=== PATIENT | female | born 1955 | race African-American/Black ===

== ENCOUNTER 2020-02-06 16:26 | Inpatient (IN) | payer OTHER ==
[~2020-02-06] VITALS: Ht 167.6 cm; Wt 100.4 kg
--- NOTE | ~2020-02-06 | EKG ---
[facility] [place] [address] ELECTROCARDIOGRAM REPORT Name: SHAUN BEAN Room #: 355-P ADM IN M.R.#: [id number] Admission: 02/06/20 Attend Phys: Nader Valentin Discharge: Date of : 55 Report #: [id number] THIS REPORT FOR: cc: Teagan Rincon MD, Melanie MD Epiphany, Epiphany MD ~ THIS REPORT FOR: //name// [facility] Test Date: 2020-02-07 Test Time: 00:51:15 Pat Name: SHAUN BEAN Department: Room: 355 Gender: F Floor Refinisher: gomez raphael rn : 1955 Requested By: Scarlett Castillo Order Number: [id number] MD: Measurements Intervals [place] Rate: 93 P: 69 PA: 190 QRS: 31 QRSD: 92 T: 95 QT: 421 QTc: 524 Interpretive Statements Sinus rhythm Anteroseptal infarct, age indeterminate Prolonged QT interval Compared to ECG 11/22/2011 13:29:04 Myocardial infarct finding now present Prolonged QT interval now present T-wave abnormality no longer present [email or web address] By: 0051 005 Epiphany Epiphany, /EPI
[~2020-02-06 16:26] MED LIST: ATENOLOL 100MG100 M2; CALCIUM 600 +1 EAC1; GLUCOPHAGE500 MG; LISINOPRIL20 MG; LORTABELXR PO; MULTIVITAMINS; PREDNISONE50 MG PO; PROAIR HFA8.5 GM; SIMVASTATIN20 MG; ZPAK PO
[2020-02-06 16:27] VITALS: BP 186/106
[2020-02-06 16:57] LABS: HEMATOCRIT 46.9 % (37.0-47.0); HEMOGLOBIN 15.1 gm/dL (12.0-15.0); MCH 29.7 pg (26.0-34.0); MCHC 32.3 g/dL (28.0-37.0); MCV 92.1 fL (80.0-100.0); RBC 5.09 mil/uL (4.20-5.00); RDW 14.9 % (10.5-14.5); WBC 9.2 thou/uL (4.0-11.0)
[2020-02-06] MEDS ORDERED: HYDROCHLOROTH12.5 M2 PO (16:58)
[2020-02-06] MEDS ORDERED: METFORMIN HCL500 MG PO (16:59)
[2020-02-06] MEDS ORDERED: ATORVASTATIN CA80 MG PO (17:00)
[2020-02-06] MEDS ORDERED: ANORO ELLIPTA1 EACH INH (17:01)
[2020-02-06 17:10] LABS: BE(vivo) -3.3 mmol/L (-2 to +3); HCO3 23.2 mmol/L (22.0-26.0); PCO2 46.9 mmHg (35.0-45.0); sO2 98.4 % (92.0-98.0)
[2020-02-06 17:12] LABS: pH 7.312 (7.360-7.450)
[2020-02-06 18:19] LABS: CALCIUM 9.1 mg/dL (8.5-10.1); POTASSIUM 3.6 mmol/L (3.5-5.1)
[2020-02-06 18:33] LABS: TROPONIN-I 0.64 ng/mL (<0.06)
[2020-02-06 18:41] VITALS: BP 150/84
[2020-02-06 19:31] VITALS: BP 178/102
[2020-02-06 20:39] VITALS: BP 178/102
--- NOTE | 2020-02-06 21:35 | NUR ---
PT RECEIVED FROM ED VIA AROUND 2100. PT WAS STABLE UPON ARRIVAL INTO THE ROOM SITTING IN THE ROOM. PT'S OXYGEN LEVEL WAS 96O2 ON RA. PT STATED SLIGHT PX AT THE L LATERAL NECK ONSET WITH MOVEMENT. PT ADMISSION COMPLETED BY THIS RN, COMPLETED TO THE BEST EXTENT. PT STATED UNDERSTANDING OF PT RIGHTS, USE OF CALL LIGHT/BED, SCDs ON, POC EXPLAINED. PT HAD NO COMPLAINTS AT THIS TIME. CONSULT FOR HOSPICE EDUCATOR INPUT WAS PUT IN, THIS RN CALLED AND ECHO/TROPONIN/ASPIRIN WAS ORDERED. PT AT THIS TIME IS RESTING IN BED, CALL LIGHT, WATER, PHONE ON THE BEDSIDE TABLE. BED AT LOWEST SETTING, 2/4 RAILS UP. WILL CONTINUE TO PROVIDE PROMPT CARE.
[2020-02-06 21:55] VITALS: BP 147/94
[2020-02-07] VITALS (7 sets, daily range): BP systolic 140–170; BP diastolic 62–99
--- NOTE | 2020-02-07 08:39 | EKG ---
[facility] [place] [address] ELECTROCARDIOGRAM REPORT Name: SHAUN BEAN Room #: 355-P ADM IN M.R.#: [id number] Admission: 02/06/20 Attend Phys: Nader Valentin Discharge: Date of : 55 Report #: [id number] THIS REPORT FOR: cc: Teagan Rincon MD, Melanie MD Couchonnal,Ivan Ocasio MD ~ THIS REPORT FOR: //name// [facility] ED Test Date: 2020-02-06 Test Time: 16:34:30 Pat Name: SHAUN BEAN Department: Room: [facility] Gender: F Resident In Diagnostic Radiology: jolene : 1955 Requested By: Duong Simmons Order Number: [id number] MD: Ivan Ferro Measurements Intervals [place] Rate: 101 P: 73 TN: 185 QRS: -58 QRSD: 123 T: 96 QT: 398 QTc: 516 Interpretive Statements Sinus tachycardia Left bundle branch block Compared to ECG 11/22/2011 13:29:04 Left bundle-branch block now present Sinus rhythm no longer present T-wave abnormality no longer present Electronically Signed On 02-07-2020 8:38:25 CDT by Ivan Ferro [email or web address] <ELECTRONICALLY SIGNED> By: Ivan Ferro MD 02/07/20 0838 1634 1634 Ivan Ferro MD /EPI
--- NOTE | 2020-02-07 08:40 | EKG ---
[facility] [place] [address] ELECTROCARDIOGRAM REPORT Name: SHAUN BEAN Room #: 355-P ADM IN M.R.#: [id number] Admission: 02/06/20 Attend Phys: Nader Valentin Discharge: Date of : 55 Report #: [id number] THIS REPORT FOR: cc: Teagan Rincon MD, Melanie MD Couchonnal,Ivan Ocasio MD ~ THIS REPORT FOR: //name// [facility] ED Test Date: 2020-02-06 Test Time: 17:27:12 Pat Name: SHAUN BEAN Department: Room: [facility] Gender: F Senior Partner: jolene : 1955 Requested By: Duong Simmons Order Number: [id number] MD: Ivan Ferro Measurements Intervals [place] Rate: 92 P: 67 SC: 201 QRS: -20 QRSD: 94 T: 89 QT: 389 QTc: 482 Interpretive Statements Sinus rhythm Borderline left axis deviation Compared to ECG 11/22/2011 13:29:04 T-wave abnormality no longer present Electronically Signed On 02-07-2020 8:38:37 CDT by Ivan Ferro [email or web address] <ELECTRONICALLY SIGNED> By: Ivan Ferro MD 02/07/20 0838 1727 26 Ivan Ferro MD /EPI
--- NOTE | 2020-02-07 08:41 | EKG ---
[facility] [place] [address] ELECTROCARDIOGRAM REPORT Name: SHAUN BEAN Room #: 355-P ADM IN M.R.#: [id number] Admission: 02/06/20 Attend Phys: Nader Valentin Discharge: Date of : 55 Report #: [id number] THIS REPORT FOR: cc: Teagan Rincon MD, Melanie MD Couchonnal,Ivan Ocasio MD ~ THIS REPORT FOR: //name// [facility] Test Date: 2020-02-07 Test Time: 00:51:15 Pat Name: SHAUN BEAN Department: Room: 355 Gender: F Length Control Tester: gomez raphael rn : 1955 Requested By: Scarlett Castillo Order Number: [id number] MD: Ivan Ferro Measurements Intervals [place] Rate: 93 P: 69 [place]: 190 QRS: 31 QRSD: 92 T: 95 QT: 421 QTc: 524 Interpretive Statements Sinus rhythm Anteroseptal infarct, age indeterminate Compared to ECG 11/22/2011 13:29:04 Myocardial infarct finding now present T-wave abnormality no longer present Electronically Signed On 02-07-2020 8:39:43 CDT by Ivan Ferro [email or web address] <ELECTRONICALLY SIGNED> By: Ivan Ferro MD 02/07/20 0839 Ivan Ferro MD /EPI
--- NOTE | 2020-02-07 13:35 | NUR ---
ASSESSMENT: CM REVIEWED CHART AND SPOKE WITH PATIENT. PT IS ALERT AND ORIENTED X4. PT IS CURRENTLY IN ISOLATION TO RULE OUT COVID 19. PT REPORTS SHE LIVES IN A HOUSE WITH HER , BROTHER, AND GRANDSON. PTS GRANDSON RECENTLY TRAVELED TO [place]. PT REPORTS SHE HAS ONE STEP TO ENTER THE HOME AND NO STEPS ONCE INSIDE. PT REPORTS SHE IS FULLY INDEPENDENT WITH ADLS AND AMBULATION AND DOES NOT HAVE DME. PT REPORTS SHE HAS NOT HAD HH IN THE PAST NOR BEEN TO A SNF. CM DISCUSSED ROLE. PT REPORTS SHE HAS NOT BEEN HOSPITALIZED SINCE SHE HAD HER CHILDREN AND IS VERY INDEPENDENT AND DOES NOT FEEL SHE WILL HAVE ANY NEEDS. CM WILL CONTINUE TO FOLLOW TO ASSIST NEEDED.
--- NOTE | 2020-02-07 19:12 | NUR ---
ASSUMED PATIENT CARE AT 0700. A/O X4. AFEBRILE. VSS. UP AD ODELL. SLOWLY TOWADS POC GOALS.
--- NOTE | 2020-02-07 21:11 | NUR ---
Pt progressing towards d/c goals. VSS Afebrile. Lungs continue to have wheezes. Resp tx per Rt. Unlabored currently on RA. Denied pain. No s/s distess. Scds on. Ambulates to BR independently. Sr on monitor.
--- NOTE | 2020-02-07 21:13 | NUR ---
Covid- negative. Report called to ns for rm 206. transferring pt in stable condition with all her belongings.
[2020-02-08 00:51] VITALS: BP 131/67
[2020-02-08 04:45] VITALS: BP 171/79
--- NOTE | 2020-02-08 05:13 | NUR ---
ASSESSMENTS CHARTED, MEDS GIVEN CHARTED. PATIENT WAS TRANSFERED FROM 3W AFTER HER COVID TEST CAME BACK NEGATIVE. ORIGINALLY CAME IN FOR CHEST PAIN AND RESPIRATORY ISSUES. PLAN IS TO GET AN ECHO DONE TODAY IF POSSIBLE. ALERT AND ORIENTED, SINUS RHYTHM ON TELEMETRY, ON ROOM AIR, UP AT ODELL IN ROOM. C/O HEADACHE AND NECK STRAIN. 02/06.
[2020-02-08 07:50] VITALS: BP 177/73
[2020-02-08 16:20] VITALS: BP 136/66
[2020-02-08 19:34] VITALS: BP 150/74
[2020-02-09 04:59] VITALS: BP 168/95
--- NOTE | 2020-02-09 06:27 | NUR ---
ASSESSMENT DOCUMENTED.PT BEEN RESTING IN NO ACUTE DISTRESS.A/OX4.VSS.DENIES CARDIAC PAIN.ON RA W/O RESP DISTRESS.UP AD ODELL TO BR,GAIT STEADY.POC IS TO WAIT FOR ECHO RESULTS ADN R/O ISCHEMIA.PT DENIES ANY CONCERNS AT THIS TIME.
[2020-02-09 07:31] VITALS: BP 160/75
--- NOTE | 2020-02-09 08:33 | 2DMMODE ---
[facility] [place] [address] 2 D/M-MODE ECHOCARDIOGRAM Name: SHAUN BEAN Patrick Room #: 206-P ADM IN M.R.#: [id number] Admission: 02/06/20 Attend Phys: Nader Valentin Discharge: Date of : 55 Report #: [id number] THIS REPORT FOR: cc: Teagan Rincon MD, Melanie MD Mancuso, Gerald M. MD [facility] ~ APPROVED REPORT Study performed: 02/08/2020 09:44:07 EXAM: Comprehensive 2D, Doppler, and color-flow Echocardiogram Patient Location: Bedside Room #: 206 Status: on-call BSA: 2.09 HR: 72 bpm BP: 144/73 mmHg Rhythm: NSR Other Information Study Quality: Adequate Risk Factors: Cardiac Risk Factors: HTN, DM, Smoking Indications Dyspnea Elevated Troponin 2D Dimensions IVSd: 13.99 (7-11mm) LVOT Diam: 21.00 (18-24mm) LVDd: 39.26 mm PWd: 11.56 (7-11mm) Ascending Ao: 31.45 (22-36mm) LVDs: 26.63 (25-40mm) Aortic Root: 27.53 mm LV Single Plane 4CH: 53.12 % LV Single Plane 2CH: 61.01 % Biplane EF: 56.1 % Volumes Left Atrial Volume (Systole) Single Plane 4CH: 46.40 mL Single Plane 2CH: 80.11 mL LA ESV Index: 32.00 mL/m2 [facility] [address] [place] [address] 2 D/M-MODE ECHOCARDIOGRAM Name: SHAUN BEAN Room #: 206-P [facility] IN ..#: [id number] Admission: 02/06/20 Attend Phys: Nader Lindo Dec Discharge: Date of : 55 Report #: [id number] Aortic Valve AoV Peak Raúl.: 1.34 m/s AO Peak Gr.: 7.15 mmHg LVOT Max P.00 mmHg LVOT Max V: 1.00 m/s ANTONIA Vmax: 2.56 cm2 Mitral Valve E/A Ratio: 1.0 MV Decel. Time: 204.43 ms MV E Max Raúl.: 0.89 m/s MV A Raúl.: 0.88 m/s MV PHT: 59.28 ms IVRT: 65.74 ms Pulmonary Valve PV Peak Raúl.: 0.80 m/s PV Peak Gr.: 2.58 mmHg Pulmonary Vein P Vein S: 0.69 m/s P Vein A: 0.32 m/s P Vein D: 0.47 m/s P Vein A Dur.: 86.5 msec P Vein S/D Ratio: 1.47 Tricuspid Valve RAP Estimate: 10.00 mmHg Left Ventricle The left ventricle is normal size. There is normal LV segmental wall motion. Mild to moderate concentric left ventricular hypertrophy. The left ventricular systolic function is normal. The left ventricular ejection fraction is within the normal range. LVEF is 55-60%. Moderate diastolic dysfunction is present (pseudonormal filling). Right Ventricle The right ventricle is normal size. The right ventricular systolic function is normal. Atria The left atrium size is normal. The right atrium size is normal. Aortic Valve The aortic valve is normal in structure. No aortic regurgitation is present. There is no aortic valvular stenosis. Mitral Valve [facility] [address] [place] [address] 2 D/M-MODE ECHOCARDIOGRAM Name: SHAUN BEAN Room #: 206-P [facility] IN M.R.#: [id number] Admission: 02/06/20 Attend Phys: Nader Hayes Discharge: Date of : 55 Report #: [id number] The mitral valve is normal in structure. Trace mitral regurgitation. No evidence of mitral valve stenosis. Tricuspid Valve The tricuspid valve is normal in structure. There is no tricuspid valve regurgitation noted. Pulmonic Valve The pulmonary valve is normal in structure. There is no pulmonic valvular regurgitation. Great Vessels The aortic root is normal in size. The ascending aorta is normal in size. IVC is dilated and collapses >50% with inspiration. Pericardium There is no pericardial effusion. <Conclusion> The left ventricle is normal size. LVEF is 55-60%. Moderate diastolic dysfunction is present (pseudonormal filling). The right ventricle is normal size. The left atrium size is normal. The aortic valve is normal in structure. Trace mitral regurgitation. There is no tricuspid valve regurgitation noted. The aortic root is normal in size. There is no pericardial effusion. <ELECTRONICALLY SIGNED> By: Fabiano Quan MD, FACC 02/09/20830 0 0 Fabiano Quan MD, FACC /INF
[2020-02-09 11:33] VITALS: BP 145/68
[2020-02-09 15:39] VITALS: BP 156/84
--- NOTE | 2020-02-09 16:57 | NUR ---
PT CARE ASSUMED APPROX 0700. ASSESSMENT CHARTED. DENIES PAIN AND SOA. VSS. UP WITH STEADY GAIT. TOLERATING POC. DENIES QUESTIONS OR CONCERNS REGARDING POC. NO DISTRESS NOTED.
[2020-02-09 19:54] VITALS: BP 181/91
[2020-02-10] VITALS (14 sets, daily range): BP systolic 147–1147; BP diastolic 80–107
--- NOTE | 2020-02-10 05:49 | NUR ---
ASSUMED PT CARE AT 1900, PT IS AWAKE, A&OX4, SR ON THE MONITOR, ASESSMENTS CHARTED, DENIES CHEST PAIN AND SOB, REMAINED NPO AFTER MIDNIGHT, VITAL STABLE, RESTED WITH NO CONCERNS THROUGH THE NIGHT, WILL CONTINUE TO MONITOR
--- NOTE | 2020-02-10 17:50 | NUR ---
ASSUMED PATIENT CARE AT SHIFT CHANGE, ASSESSMENT CHARTED. BP ELEVATED, MEDICATED WITH MORNING MEDS POST CATH, AND DR HUA NOTIFIED, SEE POST CARDIAC CATH ASSESSMENT. DENIES CP OR DISCOMFRT AND WILL CONTINUE WITH POC.
[2020-02-11] VITALS: BP 168/92
[2020-02-11 04:00] VITALS: BP 1187/85
[2020-02-11 04:59] LABS: ABSOLUTE NEUTROPHILS 9.8 thou/uL (1.4-8.2); BASOPHILS 0.3 % (0.0-2.0); HEMATOCRIT 46.8 % (37.0-47.0); LYMPHOCYTES 22.9 % (24.0-44.0); MCH 29.2 pg (26.0-34.0); MCHC 32.2 g/dL (28.0-37.0); MCV 90.9 fL (80.0-100.0); MONOCYTES 4.7 % (1.0-8.0); PLATELET COUNT 245 thou/uL (150-400); POLYS 72.1 % (36.0-66.0); RBC 5.15 mil/uL (4.20-5.00); RDW 14.8 % (10.5-14.5); WBC 13.6 thou/uL (4.0-11.0)
[2020-02-11 05:02] VITALS: BP 184/87
[2020-02-11 05:13] LABS: ALBUMIN 3.4 g/dL (3.4-5.0); CALCIUM 8.8 mg/dL (8.5-10.1); CREATININE 0.9 mg/dL (0.6-1.0); POTASSIUM 3.4 mmol/L (3.5-5.1); TOTAL BILIRUBIN 0.4 mg/dL (<0.1-1.0); TOTAL PROTEIN 7.2 g/dL (6.4-8.2)
--- NOTE | 2020-02-11 06:24 | NUR ---
ASSUMED PT CARE AT 1900, PT IS ALERT, AWAKE AND ORIENTEDX4, DENIES CHEST PAIN OR SOB, BP ELEVATED,PRACTICE PERFORMANCE MANAGER NOTIFIED, GAVE CARVEDILOL EARLY, GROIN SITE CDI, ASSESSMENTS CHARTED, RESTED WELL THROUGH THE NIGHT, WILL CONTINUE TO MONITOR
[2020-02-11 08:27] VITALS: BP 158/89
--- NOTE | 2020-02-11 09:51 | CATHLAB ---
[facility] [address] INVASIVE PROCEDURE REPORT Name: SHAUN BEAN Room #: 206-P ADM IN M.R.#: [id number] Admission: 02/06/20 Attend Phys: Nader Lindo Homero Discharge: Date of : 55 Report #: [id number] THIS REPORT FOR: cc: Teagan Rincon MD, Melanie MD Park, Jin S. MD ~ APPROVED REPORT Study performed: 02/10/2020 09:50:55 Patient Details Patient Status: In-Patient Room #: The patient is a 64 year-old female Event Personnel Alonso Trejo Combat Systems Officer, Courtney Boateng CVT Monitor, Seymour Parra RN, Ramiro Morrison RT(R)(CV) Scrub, Christianne Munoz RTR X-Ray Tech Procedures Performed 72934 Initial Mod Sed Same Phys/QHP Gr5y [id number] 51136 Mod Sed Same Phys/QHP Ea [id number] Left Heart Cath, [facility] Indication Dyspnea, Chest pain, The patient presented with dyspnea and minimal troponin elevation. Risk Factors Chronic Lung DiseaseHypercholesterolemia, Hypertension, Diabetes Tobacco History () Procedure Narrative The Right Groin^ was infiltrated with 1% Lidocaine subcutaneous anesthesia. A PINNACLE 4FR Sheath #[id number] sheath was inserted into the RFA 4 FR^. Coronary angiography was performed using coronary diagnostic catheters. The right coronary system was accessed and visualized with a JR4 catheter. The left coronary system was accessed and visualized with a JL4 catheter. The left ventricle was accessed and visualized with a angled pigtail catheter. Left ventricular/Aortic Valve gradient assessed via catheter pullback. Hemostasis was obtained with manual pressure following sheath removal without any complications. The patient tolerated the procedure well and there were no complications associated with the procedure. There was no hematoma. [facility] [place] [address] INVASIVE PROCEDURE REPORT Name: SHAUN BEAN Room #: 206-P [facility] IN ..#: [id number] Admission: 02/06/20 Attend Phys: Nader Hayes Discharge: Date of : 55 Report #: [id number] Intraoperative Conscious Sedation Sedation start time: 10:52 Case end Time: 11:18 Fentanyl 100 mcg Versed 1.5 mg Fluoro Time: 4.20 minutes Dose: DAP 7631.00 cGycm2 1298 mGy Contrast Type and Amount: Omnipaque 130 ml Coronary Angiography The patient's coronary anatomy is right dominant. Diagnostic Cath Left Main The left main artery is a large-caliber vessel, with no flow-limiting lesions. LAD The LAD is a moderate size caliber vessel, traversing the anterior wall and wrapping around the apex. There is mild disease in the mid segment, 20%. Diagonal 1 This is a small to moderate size caliber vessel, patent with no flow-limiting lesions. Diagonal 2 This is a small to moderate size caliber vessel, patent with no flow-limiting lesions. Circumflex There is mild disease in the proximal segment. Supplies one moderate size OM vessel. OM1 This is a moderate size caliber vessel, with mild disease in the proximal segment, 20%. Right Coronary The RCA is a dominant vessel with mild diffuse disease in the mid segment, 20%. There is a 30-40% stenosis in the distal segment. R PDA This is a small to moderate size caliber vessel, patent with no flow-limiting lesions. RPLV This is a small to moderate size caliber vessel, patent with no flow-limiting lesions. Left Ventriculography Left Ventriculography was not performed. Ejection Fraction was >55% based off patient's Echocardiogram. An LVEDP was checked and there is no gradient across the outflow tract. Hemodynamics The aortic pressure is 191/106 mmHg with a mean of 142 mmHg. The left ventricular pressure is 180/24 mmHg with a mean of mmHg. The left ventricular end diastolic pressure is 35 mmHg. Conclusion [facility] [address] [place] [address] INVASIVE PROCEDURE REPORT Name: SHAUN BEAN Room #: 206-P ADM IN M.R.#: [id number] Admission: 02/06/20 Attend Phys: Nader Hayes Discharge: Date of : 55 Report #: [id number] 1. 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 2. Right dominant system. 3. Normal LV systolic function. 4. Recommend aggressive risk factor management. <ELECTRONICALLY SIGNED> By: Alonso Trejo MD 02/11/2049 8 8 Alonso Trejo MD /INF
[2020-02-11] MEDS ORDERED: NORVASC5 MG PO (09:56)
[2020-02-11] MEDS ORDERED: BENICAR20 MG PO (09:56)
[2020-02-11] MEDS ORDERED: ASPIR 8181 MG PO (09:56)
[2020-02-11] MEDS ORDERED: CHLORTHALIDONE25 MG PO (09:56)
[2020-02-11] MEDS ORDERED: CARVEDILOL12.5 MG PO (09:56)
[2020-02-11] MEDS ORDERED: PREDNISONE 20 M20 M1 PO (10:50)
[2020-02-11] MEDS ORDERED: DOXYCYCLINE HYC50 MG PO (10:50)
[2020-02-11] MEDS ORDERED: NICOTINE TRANSD14 M1 TRANSDERM (10:50)
[2020-02-11 11:29] VITALS: BP 149/88
[2020-02-11 12:57] VITALS: BP 149/88
--- NOTE | 2020-02-11 13:13 | NUR ---
ASSESSMENT DOCUMENTED, AND PATIENT BP TRENDING DOWN 143/86 AFTER GIVING THE NEW PRESCRIPTION AND OTHER VSS. DISCHARGE AND MEDICATION INSTRUCTIONS GIVEN.
== END 2020-02-11 13:50 | disposition home or self-care (01) | DRG 280 ==
LOC: ER 16:26 → 3W 20:21 → 2N 20:21 → 3W 02-07 17:04 → 2N 02-07 21:30
PROVIDERS: Emergency Medicine; Pediatrics; ADMIT Hospitalist
DX: I21.4 Non-ST elevation (NSTEMI) myocardial infarction (principal); J96.00 Acute respiratory failure, unspecified whether with hypoxia or hypercapnia; J44.1 Chronic obstructive pulmonary disease with (acute) exacerbation; E87.2 Acidosis; J44.0 Chronic obstructive pulmonary disease with (acute) lower respiratory infection; I25.10 Atherosclerotic heart disease of native coronary artery without angina pectoris; J20.9 Acute bronchitis, unspecified; Z20.828 Contact with and (suspected) exposure to other viral communicable diseases; E11.9 Type 2 diabetes mellitus without complications; I10 Essential (primary) hypertension; Z79.899 Other long term (current) drug therapy; Z79.51 Long term (current) use of inhaled steroids; Z79.84 Long term (current) use of oral hypoglycemic drugs; Z79.82 Long term (current) use of aspirin
CPT/HCPCS: 10081; 10879

== ENCOUNTER 2020-03-04 01:09 | Emergency (ER) | payer OTHER ==
[~2020-03-04] VITALS: Ht 170.2 cm; Wt 99.3 kg
[~2020-03-04 01:09] MED LIST changes: +ANORO ELLIPTA1 EACH INH; +ASPIR 8181 MG PO; +ATORVASTATIN CA80 MG PO; +BENICAR20 MG PO; +CARVEDILOL12.5 MG PO; +CHLORTHALIDONE25 MG PO; +DOXYCYCLINE HYC50 MG PO; +HYDROCHLOROTH12.5 M2 PO; +METFORMIN HCL500 MG PO; +NICOTINE TRANSD14 M1 TRANSDERM; +NORVASC5 MG PO; +PREDNISONE 20 M20 M1 PO
[2020-03-04 01:31] LABS: ABSOLUTE NEUTROPHILS 3.3 thou/uL (1.4-8.2); BASOPHILS 0.7 % (0.0-2.0); EOSINOPHILS 5.7 % (0.0-3.0); HEMATOCRIT 40.7 % (37.0-47.0); HEMOGLOBIN 13.3 gm/dL (12.0-15.0); LYMPHOCYTES 32.5 % (24.0-44.0); MCH 29.9 pg (26.0-34.0); MCHC 32.6 g/dL (28.0-37.0); MCV 91.6 fL (80.0-100.0); PLATELET COUNT 233 thou/uL (150-400); POLYS 52.1 % (36.0-66.0); RBC 4.45 mil/uL (4.20-5.00); RDW 15.1 % (10.5-14.5); WBC 6.4 thou/uL (4.0-11.0)
[2020-03-04 01:39] LABS: ANION GAP 9 mmol/L (7-16); BUN 23 mg/dL (7-18); CALCIUM 8.6 mg/dL (8.5-10.1); CHLORIDE 105 mmol/L (98-107); CO2 26 mmol/L (21-32); CREATININE 1.4 mg/dL (0.6-1.0); GLUCOSE 127 mg/dL (74-106); POTASSIUM 4.2 mmol/L (3.5-5.1); SODIUM 140 mmol/L (136-145)
[2020-03-04 01:49] LABS: ALBUMIN 3.4 g/dL (3.4-5.0); SGOT 25 U/L (15-37); SGPT 27 U/L (30-65); TOTAL BILIRUBIN 0.3 mg/dL (<0.1-1.0); TOTAL PROTEIN 7.4 g/dL (6.4-8.2); TROPONIN-I <0.06 ng/mL (<0.06)
[2020-03-04 02:26] VITALS: BP 109/68
[2020-03-04] MEDS ORDERED: PREDNISONE 20 M20 MG PO (02:57)
--- NOTE | 2020-03-04 08:04 | EKG ---
[facility] [place] [address] ELECTROCARDIOGRAM REPORT Name: SHAUN BEAN Room #: DEP [facility]#: [id number] Admission: 03/04/20 Attend Phys: Discharge: 03/04/20 Date of : 55 Report #: [id number] THIS REPORT FOR: cc: Teagan Rincon MD, Melanie MD Lundgren,Boy Baker MD [facility] ~ THIS REPORT FOR: //name// [facility] ED Test Date: 2020-03-04 Test Time: 01:16:57 Pat Name: SHAUN BEAN Department: Room: Gender: F Print Buyer: NO : 1955 Requested By: Benjy Corral Order Number: [id number] MD: Boy Murphy Measurements Intervals [place] Rate: 95 P: 73 [place]: 186 QRS: 50 QRSD: 93 T: 92 QT: 366 QTc: 460 Interpretive Statements Sinus rhythm Nonspecific T abnormalities, lateral leads Compared to ECG 02/07/2020 00:51:15 Septal Q waves are no longer present Electronically Signed On 03-04-2020 8:03:07 CDT by Boy Murphy [email or web address] <ELECTRONICALLY SIGNED> By: Boy Murphy MD, [facility] 03/04/20 0803 0116 0116 Boy Murphy MD, [facility] /EPI
== END 2020-03-04 03:08 | disposition home or self-care (01) ==
LOC: ER 01:09
PROVIDERS: Emergency Medicine
DX: J44.1 Chronic obstructive pulmonary disease with (acute) exacerbation (principal); I10 Essential (primary) hypertension; E78.00 Pure hypercholesterolemia, unspecified; E11.9 Type 2 diabetes mellitus without complications; J45.909 Unspecified asthma, uncomplicated; Z79.899 Other long term (current) drug therapy

== ENCOUNTER 2020-03-25 00:29 | Emergency (ER) | payer OTHER ==
[~2020-03-25] VITALS: Ht 170.2 cm; Wt 99.3 kg
[~2020-03-25 00:29] MED LIST changes: +PREDNISONE 20 M20 MG PO
[2020-03-25 00:46] LABS: ABSOLUTE NEUTROPHILS 4.3 thou/uL (1.4-8.2); BASOPHILS 1.2 % (0.0-2.0); EOSINOPHILS 2.3 % (0.0-3.0); HEMATOCRIT 41.5 % (37.0-47.0); HEMOGLOBIN 13.8 gm/dL (12.0-15.0); LYMPHOCYTES 35.8 % (24.0-44.0); MCH 30.1 pg (26.0-34.0); MCHC 33.3 g/dL (28.0-37.0); MCV 90.6 fL (80.0-100.0); PLATELET COUNT 243 thou/uL (150-400); POLYS 54.7 % (36.0-66.0); RBC 4.58 mil/uL (4.20-5.00); RDW 14.2 % (10.5-14.5); WBC 7.8 thou/uL (4.0-11.0)
[2020-03-25 00:52] LABS: ANION GAP 9 mmol/L (7-16); BUN 22 mg/dL (7-18); CALCIUM 8.8 mg/dL (8.5-10.1); CHLORIDE 107 mmol/L (98-107); CO2 27 mmol/L (21-32); CREATININE 1.1 mg/dL (0.6-1.0); GLUCOSE 116 mg/dL (74-106); SODIUM 143 mmol/L (136-145)
[2020-03-25] MEDS ORDERED: NEBULIZER (00:57)
[2020-03-25] MEDS ORDERED: NEBULIZER INH (00:58)
[2020-03-25 01:01] LABS: TROPONIN-I <0.06 ng/mL (<0.06)
[2020-03-25 01:28] VITALS: BP 137/80
[2020-03-25] MEDS ORDERED: PREDNISONE 20 M20 MG PO (02:07)
--- NOTE | 2020-03-25 08:37 | EKG ---
[facility] [place] [address] ELECTROCARDIOGRAM REPORT Name: SHAUN BEAN Room #: DEP [facility]#: [id number] Admission: 03/25/20 Attend Phys: Discharge: 03/25/20 Date of : 55 Report #: [id number] THIS REPORT FOR: cc: Teagan Rincon MD, Melanie MD Lundgren,Boy Baker MD [facility] ~ THIS REPORT FOR: //name// [facility] ED Test Date: 2020-03-25 Test Time: 00:47:06 Pat Name: SHAUN BEAN Department: Room: Gender: Rod Straightener: : 1955 Requested By: Duong Simmons Order Number: [id number] MD: Boy Murphy Measurements Intervals [place] Rate: 90 P: 71 [place]: 198 QRS: 48 QRSD: 85 T: 74 QT: 374 QTc: 458 Interpretive Statements Sinus rhythm Normal tracing Compared to ECG 03/04/2020 01:16:57 T-wave abnormality no longer present Electronically Signed On 03-25-2020 8:35:43 CDT by Boy Murphy [email or web address] <ELECTRONICALLY SIGNED> By: Boy Murphy MD, [facility] 03/25/20 0835 0047 0047 Boy Murphy MD, [facility] /EPI
== END 2020-03-25 02:15 | disposition home or self-care (01) ==
LOC: ER 00:29
PROVIDERS: Emergency Medicine
DX: J44.1 Chronic obstructive pulmonary disease with (acute) exacerbation (principal); I10 Essential (primary) hypertension; E78.00 Pure hypercholesterolemia, unspecified; E11.9 Type 2 diabetes mellitus without complications; Z79.899 Other long term (current) drug therapy; Z79.82 Long term (current) use of aspirin